=== PATIENT | male | born 1995 | race Caucasian/White ===

== ENCOUNTER 2017-05-12 17:54 | Emergency (ER) | END 2017-05-12 19:41 | disposition home or self-care (01) ==

== ENCOUNTER 2017-11-22 16:30 | Emergency (ER) | END 2017-11-22 20:04 | disposition home or self-care (01) ==

== ENCOUNTER 2018-08-08 17:32 | Emergency (ER) | payer OTHER ==
[~2018-08-08] VITALS: Wt 110.0 kg
[~2018-08-08 17:32] MED LIST: ACET500C5 PO; CYCL10TA7 PO; DICY10CA40 PO; HYDR-3498 PO; IBUP-1542 PO; NAPR-985 PO; ONDA4TAB14 PO
[2018-08-08 17:35] VITALS: BP 138/64; PULSE 78; RESP 18
[2018-08-08] MEDS ORDERED: IBUPROFEN 600 MG TAB PO ONE (19:00)
[2018-08-08] MEDS ORDERED: TRAM50TA2 PO (19:33)
[2018-08-08] MEDS ORDERED: IBUP-1542 PO (19:33)
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
== END 2018-08-08 20:03 | disposition home or self-care (01) ==
LOC: FTE 17:32
DX: M54.2 Cervicalgia (principal); M54.5 Low back pain
CPT/HCPCS: 72040; 72100; Z7502; Z7610